=== PATIENT | male | born 1980 | race American Indian/Alaskan Native ===

== ENCOUNTER 2017-08-26 00:01 | Emergency (ER) | payer BC ==
[2017-08-26 04:03] VITALS: BP 126/78
--- NOTE | 2017-08-26 04:29 | Emergency Department Report ---
ED Lower Extremity HPI - General Chief Complaint: Extremity Injury, Lower Stated Complaint: FALL / PAIN Time Seen by Provider: 08/26/17 02:01 Source: patient, family Mode of arrival: Ambulatory Limitations: No Limitations - History of Present Illness Initial Comments: Patient reports that he twisted his left ankle and fell down a hill and haven't been able to stand on his left leg. He said this happened yesterday. Pain and/ stand and throbbing. Pain is located on both sides of his ankle but more swollen on left outer ankle. No pain medicine taken . Pain better with rest and worse with movement. Denies any fever or chills. Denies any head injury. Pain is localized to left ankle. MD Complaint: ankle injury (left ankle) -: Last night Injury: Ankle: Left (ankle pain and swelling after injury) Type of Injury: hyperextension Place: street/outdoors Severity: severe Severity scale (0 -10): 10 Improves With: rest Worsens With: weight bearing, movement, palpation Context: fall Associated Symptoms: swelling, unable to bear weight. denies: snap/pop sensation, numbness, tingling - Related Data Previous Rx's Medication Instructions Recorded Last Taken Type Ibuprofen [Motrin] 800 mg PO Q8HR PRN #15 tablet 08/26/17 Unknown Rx Allergies Allergy/AdvReac Type Severity Reaction Status Date / Time Penicillins Allergy Hives Verified 08/26/17 01:49 ED Review of Systems ROS: Stated complaint: FALL / PAIN Other details as noted in HPI Comment: All other systems reviewed and negative Constitutional: no symptoms reported Respiratory: no symptoms reported Cardiovascular: denies: chest pain, palpitations, dyspnea on exertion, edema, syncope, paroxysmal nocturnal dyspnea Gastrointestinal: denies: nausea, vomiting Musculoskeletal: joint swelling, arthralgia. denies: back pain, myalgia Skin: denies: rash Neurological: abnormal gait (due to left ankle injury). denies: headache, weakness, numbness, paresthesias, confusion, vertigo ED Past Medical Hx - Past Medical History Previous Medical History?: No - Surgical History Past Surgical History?: No - Family History Family history: no significant - Social History Smoking Status: Former Smoker Substance Use Type: Alcohol - Medications Home Medications: Home Medications Medication Instructions Recorded Confirmed Last Taken Type Ibuprofen [Motrin] 800 mg PO Q8HR PRN #15 tablet 08/26/17 Unknown Rx ED Physical Exam - General Limitations: No Limitations General appearance: alert, in no apparent distress - Head Head exam: Present: atraumatic, normocephalic, normal inspection, other (normal exam) - Eye Eye exam: Present: normal appearance, PERRL, EOMI Pupils: Present: normal accommodation - ENT ENT exam: Present: normal exam, normal orophraynx, mucous membranes moist - Neck Neck exam: Present: normal inspection, full ROM, other (O C-spine tenderness). Absent: tenderness, lymphadenopathy - Respiratory Respiratory exam: Present: normal lung sounds bilaterally. Absent: respiratory distress, chest wall tenderness - Cardiovascular Cardiovascular Exam: Present: regular rate, normal rhythm, normal heart sounds - Extremities Exam Extremities exam: Present: tenderness, normal capillary refill, joint swelling, other (no clubbing, cyanosis. No edema. Positive joint swelling to left inner and outer ankle. +2 pulses to all extremities. No neurovascular compromise. Decreased strength in left foot and ankle due to injury and swelling.). Absent : normal inspection, full ROM, pedal edema, calf tenderness - Expanded Lower Extremity Exam Left Hip exam: Present: normal inspection, full ROM, pelvic stability. Absent: tenderness, swelling, abrasion, laceration, ecchymosis, deformity, crepidus, dislocation, erythema, external rotation, internal rotation, shortening Upper Leg exam: Present: normal inspection, full ROM. Absent: tenderness, swelling, abrasion, laceration, ecchymosis, deformity, crepidus, dislocation, erythema Knee exam: Present: normal inspection, full ROM, full knee extension. Absent: tenderness, swelling, abrasion, laceration, ecchymosis, deformity, crepidus, dislocation, erythema, effusion, pain w/ pronation/supination, posterior draw sign, pain/laxity with valgus, pain/laxity with varus Lower Leg exam: Present: normal inspection, full ROM. Absent: tenderness, swelling, abrasion, laceration, ecchymosis, deformity, crepidus, dislocation, erythema, palpable cord, Rajesh's sign Ankle exam: Present: tenderness (bimalleolar tenderness), swelling (left outer ankle swelling). Absent: normal inspection, full ROM (Limited range of motion to the left ankle due to pain and swelling.), abrasion, laceration, ecchymosis, deformity, crepidus, dislocation, erythema Foot/Toe exam: Present: full ROM, swelling (mild swelling to proximal foot). Absent: normal inspection, tenderness, abrasion, laceration, ecchymosis, deformity, crepidus, dislocation, erythema, amputation, puncture wound, foreign body, calcaneal tenderness, tenderness at base of 5th metatarsal, nail avulsion , subungual hematoma Neuro vascular tendon exam: Present: no vascular compromise, motor deficit (+3 strength to left ankle due to pain swelling from injury otherwise all extremities +5 strength), significant pain with passive ROM of distal joint. Absent: abnormal cap refill, sensory deficit, tendon deficit, extremity cold to touch, pallor, abnormal 2-point discrimination, decreased fine/light touch, foot drop, peroneal nerve deficit Gait: Positive: unable to bear weight - Back Exam Back exam: Present: normal inspection, full ROM. Absent: tenderness, CVA tenderness (R), CVA tenderness (L), muscle spasm, paraspinal tenderness, vertebral tenderness, rash noted - Neurological Exam Neurological exam: Present: alert, oriented X3, abnormal gait (patient with abnormal gait due to ankle pain and swelling in. Unable to weight-bear), motor sensory deficit (decreased strength to left ankle), reflexes normal - Psychiatric Psychiatric exam: Present: normal affect, normal mood - Skin Skin exam: Present: warm, dry, intact, normal color. Absent: rash ED Course Vital Signs 08/26/17 08/26/17 08/26/17 00:34 02:01 03:55 Temperature 98.3 F 98.2 F Pulse Rate 96 H 96 H 66 Respiratory 20 20 18 Rate Blood Pressure 130/85 Blood Pressure 130/85 126/78 [Left] O2 Sat by Pulse 98 98 100 Oximetry - Reevaluation(s) Reevaluation #1: 08/26/17 06:08 Patient given [place] 5/325 2 tablets, Motrin 600 mg. Please see procedure note for details on splinting - Orthopedic Splinting/Casting Injury #1 Side: left Lower Extremity Injury Location: ankle Lower Extremity Immobilizer: stirrup splint Other Orthopedic Equipment: crutches Additional Comments: Patient with +2 pulses to left foot. He is able to move his left foot after splinting. ED Lower Extremity MDM - Radiology Data Radiology results: report reviewed X-ray of left ankle reveal no fracture or dislocation but positive soft tissue swelling. - Medical Decision Making D course: Patient status post accidental fall with presentation to ER with ankle pain and swelling. X-ray revealed no acute fracture or dislocation but patient with soft tissue swelling to left ankle. Patient unable to weight- bear. He was given Motrin 600 mg by mouth and [place] 5/325 mg 2 tablets in the emergency room. I discussed patient that he has left ankle sprain and he does not have any broken bones. He voices understanding of discharge instruction and treatment plan. Patient discharged home prescription for Motrin and rice protocol and to follow-up with orthopedic doctor on Tuesday. Critical care attestation.: If time is entered above; I have spent that time in minutes in the direct care of this critically ill patient, excluding procedure time. ED Disposition Clinical Impression: Arthralgia of left ankle Moderate left ankle sprain Qualifiers: Encounter type: initial encounter Qualified Code(s): S93.402A - Sprain of unspecified ligament of left ankle, initial encounter Left ankle injury Qualifiers: Encounter type: initial encounter Qualified Code(s): S99.912A - Unspecified injury of left ankle, initial encounter Disposition: - TO HOME OR SELFCARE Is pt being admited?: No Does the pt Need Aspirin: No Condition: Stable Instructions: Arthralgia (ED), Ankle Sprain (ED), Ankle Stirrup Splint (ED), RICE Therapy (ED) Additional Instructions: Please refer to discharge instruction on Rice therapy. Take Motrin as prescribed for pain and swelling to right ankle Follow-up with Dr. Bingham in 3 days. Prescriptions: Ibuprofen [Motrin] 800 mg PO Q8HR PRN #15 tablet PRN Reason: pain /swelling to left ankle Referrals: DOV BINGHAM MD [Staff Physician] - 08/29/17 Forms: Work/School Release Form(ED)
--- NOTE | 2017-08-26 05:47 | XRay Report ---
FINAL REPORT PROCEDURE: XR ANKLE 2V LT TECHNIQUE: LEFT ankle radiographs, AP, lateral, and oblique views. CPT 48075 HISTORY: S/P fall twisted left ankle COMPARISON: No prior studies are available for comparison. FINDINGS: Fracture (s) and/or Dislocation(s): None. Alignment: Normal. Joint space(s): Normal. Soft tissues: There is lateral soft tissue swelling.. Bone mineralization: Normal. Foreign bodies: None. Calcaneal spurring: None. IMPRESSION: There is no acute bony abnormality. There is lateral soft tissue swelling..
[2017-08-26] MEDS ORDERED: MOTRIN PO ONE ×2 (05:51→06:36)
[2017-08-26] MEDS ORDERED: NORCO 5/325 PO ONE ×2 (05:51→06:35)
== END 2017-08-26 06:47 | disposition home or self-care (01) ==
LOC: ED 00:01
DX: S93.402A Sprain of unspecified ligament of left ankle, initial encounter (principal); W17.89XA Other fall from one level to another, initial encounter; Y93.89 Activity, other specified; Y92.89 Other specified places as the place of occurrence of the external cause; Y99.8 Other external cause status